=== PATIENT | male | born 1990 | race Caucasian/White ===

== ENCOUNTER → 2016-11-22 | Outpatient (CLI) | payer OTHER ==
[2016-11-22 11:11] LABS: SPERM MORPHOLOGY SENT TO REFERENC LAB
[2016-11-22 12:32] LABS: ROUND CELL CONC. 0.1 X10^6/mL (<5.1); SA DILUTION CNT 1 395; SA DILUTION CNT 2 375; SA DILUTION FACTOR 2; SA NONMOTILE CONCENTRATION 23.4 X10^6/mL; SA NONMOTILE COUNT1 253; SA NONMOTILE COUNT2 214; SA ROUND CELL COUNT1 2; SA ROUND CELL COUNT2 0; SA SPERM MOTILE CONC 53.6 X10^6mL; SPERM PROGRESSION 4; TOTAL SPERM COUNT 207.9 X10^6 (>33.0)
[2016-11-23 06:38] LABS: FOLLICLE STIMULATING HORMONE 4.7 mIU/mL (1.5-12.4)
[2016-11-23 07:04] LABS: PROLACTIN 13.1 ng/mL (4.0-15.2)
[2016-11-24 07:15] LABS: TESTOSTERONE FREE (DIRECT) 12.2 pg/mL (9.3-26.5)
== END ==
LOC: LAB 10:50
PROVIDERS: ATTEND Urology
DX: Z31.69 Encounter for other general counseling and advice on procreation (principal)
CPT/HCPCS: 36415; 83001; 83002; 84146; 84402; 84403; 89320